=== PATIENT | female | born 1950 | race Caucasian/White ===

== ENCOUNTER 2023-02-10 21:16 | Emergency (ER) | payer OTHER, MEDICARE ==
--- NOTE | 2023-02-10 22:06 | RAD REPORT ---
EXAM DESCRIPTION: RAD - Ankle Left 3 View - 02/10/2023 9:56 pm CLINICAL HISTORY: PAIN COMPARISON: No comparisons FINDINGS: A single screw is present within the medial malleolus. No hardware abnormality seen. Moder ate arthritic changes noted particularly at the talonavicular joint. Moderate plantar calcaneal spur.
--- NOTE | 2023-02-10 22:07 | RAD REPORT ---
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 Moderate arthritic changes also pres ent involving the third tarsal metatarsal joint. A single screw is present in the medial malleolus. M oderate plantar calcaneal spur. No acute fracture is visualized.
--- NOTE | 2023-02-10 22:12 | EDPHYS ---
Physician Documentation [facility] Name: Yadira Lindsay Age: 72 yrs Sex: Female : 1950 Arrival Date: 02/10/2023 Time: 21:16 Bed IW1 Private MD: ED Physician Manish Anderson HPI: 02/10 21:34 This 72 yrs old Female presents to ER via Wheelchair with complaints of Foot Injury, kb Ankle Injury. 21:34 Patient is a 72-year-old female who presents for left foot and ankle pain started 8:00 kb tonight. States she stepped in a hole and twisted it earlier today. Was able to ambulate after twisting it but not since the pain began 8:00.. Historical: - Allergies: 21:31 alcohol; lg3 - Home Meds: 21:31 Xyzal oral [Active]; Famotidine Oral [Active]; lg3 - PMHx: 21:31 acid reflux; lg3 - PSHx: 21:31 Tonsillectomy; Total abdominal hysterectomy; left ankle X2; right foot X2; lg3 - Immunization history:: Adult Immunizations up to date. - Social history:: Smoking status: Patient denies any tobacco usage or history of. Patient/guardian denies using alcohol. ROS: 21:34 Constitutional: Negative for fever, chills, and weight loss, kb 21:34 MS/extremity: Positive for pain, tenderness, of the anterior aspect of left ankle and dorsum of left foot, 21:34 All other systems are negative, Exam: 21:34 Constitutional: This is a well developed, well nourished patient who is awake, alert, kb and in no acute distress. Head/Face: Normocephalic, atraumatic. ENT: Moist Mucous membranes Cardiovascular: Regular rate Respiratory: Respirations even and unlabored. No increased work of breathing. Talking in full sentences Skin: Warm, dry with normal turgor. Normal color. Neuro: Awake and alert, GCS 15, oriented to person, place, time, and situation. Moves all extremities. Normal gait. 21:34 Musculoskeletal/extremity: Extremities: grossly normal except: noted in the dorsum of left foot and anterior aspect of left ankle: pain, tenderness, ROM: intact in all extremities, Circulation is intact in all extremities. Sensation intact. Weight bearing: is unable to bear weight, Vital Signs: 21:29 BP 169 / 98; Pulse 83; Resp 17 S; Temp 98.5(O); Pulse Ox 99% on R/A; Weight 75.3 kg lg3 (R); Height 5 ft. 3 in. (R); Pain 9/10; 21:29 Body Mass Index 29.41 (75.30 kg, 160.02 cm) lg3 21:29 Pain Scale: Adult lg3 MDM: 21:32 Patient medically screened. kb 21:35 Differential diagnosis: dislocation, closed fracture, Sprain. Data reviewed: vital kb signs, nurses notes. 22:11 Counseling: I had a detailed discussion with the patient and/or guardian regarding the kb historical points, exam findings, and any diagnostic results supporting the discharge/admit diagnosis, radiology results, the need for outpatient follow up, a orthopedic surgeon, to return to the emergency department if symptoms worsen or persist or if there are any questions or concerns that arise at home. 02/10 21:34 Order name: Foot Left 3 View XRAY; Complete Time: 22:10 kb 02/10 21:34 Order name: Ankle Left 3 View XRAY; Complete Time: 22:06 kb 02/10 22:12 Order name: David Wrap; Complete Time: 22:38 kb Administered Medications: 22:37 Drug: HYDROcodone-acetaminophen PO 5 mg-325 mg 1 tabs PO once Route: PO; lg3 22:41 Follow up: Response: No adverse reaction; Marked relief of symptoms lg3 Disposition Summary: 02/10/23 22:11 Discharge Ordered Notes: Location: Home Condition: Stable kb Diagnosis - Sprain of ankle kb Followup: kb - With: Emergency Department - When: As needed - Reason: Worsening of condition Followup: kb - With: Private Physician - When: 2 - 3 days - Reason: Recheck today's complaints, Continuance of care, Re-evaluation by your physician Discharge Instructions: - Discharge Summary Sheet kb - Ankle Sprain, [id number] kb Forms: - Medication Reconciliation Form kb - Thank You Letter kb - Antibiotic Education kb - Prescription Opioid Use kb - Patient Portal Instructions kb - Leadership Thank You Letter kb Prescriptions: - Diclofenac Sodium 75 mg Oral tablet, delayed release (enteric coated) - take 1 tablet ORAL route 2 times per day As needed; 30 tablet; Refills: 0, kb Product Selection Permitted Signatures: Dispatcher [employer] Erin Portillo, TIRE MOUNTER-C TIRE MOUNTER-Yolie Thornton, RN RN lg3
--- NOTE | 2023-02-10 22:12 | ER ---
Nurse's Notes [facility] Name: Yadira Lindsay Age: 72 yrs Sex: Female : 1950 Arrival Date: 02/10/2023 Time: 21:16 Bed IW1 Private MD: Diagnosis: Sprain of ankle Presentation: 02/10 21:29 Chief complaint: Patient states: pain to right ankle. stepped in hole earlier today but lg3 it didn't hurt. new onset pain around 2000 tonight. Coronavirus screen: Client denies travel out of the [place] in the last 14 days. At this time, the client does not indicate any symptoms associated with coronavirus-19. Ebola Screen: No symptoms or risks identified at this time. Initial Sepsis Screen: Does the patient meet any 2 criteria? No. Patient's initial sepsis screen is negative. Does the patient have a suspected source of infection? No. Patient's initial sepsis screen is negative. Risk Assessment: Do you want to hurt yourself or someone else? Patient reports no desire to harm self or others. Onset of symptoms was February 10, 2023. 21:29 Method Of Arrival: Wheelchair lg3 21:29 Acuity: TU 4 lg3 Triage Assessment: 21:31 General: Appears in no apparent distress. uncomfortable, Behavior is calm, cooperative. lg3 Pain: Complains of pain in left foot. EENT: No deficits noted. No signs and/or symptoms were reported regarding the EENT system. Neuro: No deficits noted. Collazo Agitation-Sedation Scale (RASS): 0 - Alert and Calm Level of Consciousness is awake, alert, obeys commands, Oriented to person, place, time, situation. Cardiovascular: No deficits noted. Denies chest pain, shortness of breath, Capillary refill < 3 seconds Clubbing of nail beds is absent JVD is absent Patient's skin is warm and dry. Respiratory: No deficits noted. Airway is patent Respiratory effort is even, unlabored, Respiratory pattern is regular, symmetrical. GI: No deficits noted. No signs and/or symptoms were reported involving the gastrointestinal system. : No deficits noted. No signs and/or symptoms were reported regarding the genitourinary system. Derm: No deficits noted. Skin is intact, is healthy with good turgor, Skin is dry, Skin is normal, Skin temperature is warm. Musculoskeletal: Circulation, motion, and sensation intact. Range of motion: limited in all extremities, Reports pain in left foot. Historical: - Allergies: 21:31 alcohol; lg3 - Home Meds: 21:31 Xyzal oral [Active]; Famotidine Oral [Active]; lg3 - PMHx: 21:31 acid reflux; lg3 - PSHx: 21:31 Tonsillectomy; Total abdominal hysterectomy; left ankle X2; right foot X2; lg3 - Immunization history:: Adult Immunizations up to date. - Social history:: Smoking status: Patient denies any tobacco usage or history of. Patient/guardian denies using alcohol. Screenin:38 [facility] ED Fall Risk Assessment (Adult) History of falling in the last 3 months, lg3 including since admission No falls in past 3 months (0 pts). Abuse screen: Denies threats or abuse. Denies injuries from another. Nutritional screening: No deficits noted. Tuberculosis screening: No symptoms or risk factors identified. Assessment: 22:38 General: see triage assessment. lg3 Vital Signs: 21:29 BP 169 / 98; Pulse 83; Resp 17 S; Temp 98.5(O); Pulse Ox 99% on R/A; Weight 75.3 kg lg3 (R); Height 5 ft. 3 in. (R); Pain 9/10; 21:29 Body Mass Index 29.41 (75.30 kg, 160.02 cm) lg3 21:29 Pain Scale: Adult lg3 ED Course: 21:18 Patient arrived in ED. [id number] 21:31 Triage completed. lg3 21:31 Erin Choi FNP-C is PHCP. kb 21:31 Manish Anderson MD is Attending Physician. kb 21:31 Arm band placed on left wrist. lg3 21:58 Foot Left 3 View XRAY In Process Unspecified. EDMS 21:58 Ankle Left 3 View XRAY In Process Unspecified. EDMS 22:38 Patient has correct armband on for positive identification. lg3 22:38 No provider procedures requiring assistance completed. Patient did not have IV access lg3 during this emergency room visit. Administered Medications: 22:37 Drug: HYDROcodone-acetaminophen PO 5 mg-325 mg 1 tabs PO once Route: PO; lg3 22:41 Follow up: Response: No adverse reaction; Marked relief of symptoms lg3 Medication: 22:38 VIS not applicable for this client. lg3 Outcome: 22:11 Discharge ordered by MD. freeman 22:38 Discharged to home via wheelchair, with significant other, lg3 22:38 Condition: stable 22:38 Discharge instructions given to patient, Instructed on discharge instructions, follow up and referral plans. medication usage, Demonstrated understanding of instructions, follow-up care, medications, Prescriptions given X 1, 22:42 Patient left the ED. lg3 Signatures: Dispatcher [employer] EDMS Erin Choi, TUBE BUILDER-C TUBE BUILDER-Yolie Thornton, RN RN lg3 Nicki Silverio [email or web address]
[2023-02-10] MEDS ORDERED: HYDROCODONE/APAP 5/325 MG TAB ONE (22:50)
[2023-02-10 23:43] VITALS: TEMP 97.8
[2023-02-10 23:46] VITALS: BP 145/64; O2SAT 98
== END 2023-02-10 22:42 | disposition home or self-care (01) ==
LOC: ER 21:16
DX: S93.402A Sprain of unspecified ligament of left ankle, initial encounter (principal); Z91.048 Other nonmedicinal substance allergy status
CPT/HCPCS: 99283